=== PATIENT | male | born 1980 | race Caucasian/White ===

== ENCOUNTER 2020-06-14 14:24 | Outpatient (CLI) | payer BC, SELFPAY ==
--- NOTE | 2020-06-14 14:00 | DI.RAD_ITS ---
EXAM: XR KNEE RT 3V AP,LAT,LEONID CLINICAL HISTORY: right knee pain. TECHNIQUE: 2D digital imaging was performed. COMPARISON: No exams were available for comparison FINDINGS: BONES: No acute fracture is present. No bony destructive lesion is seen. There is a small well cortic ated osseous fragment at the inferior aspect of the patella which appears old. JOINTS: The knee is normally aligned. Very small suprapatellar joint effusion. The articular surface s are well maintained. SOFT TISSUE: Normal. IMPRESSION: Very small joint effusion. DATA REPOSITORY: RADIATION DOSE DELIVERED:
== END 2020-06-14 14:44 ==
PROVIDERS: PCP Naturopath; Referring Provider Naturopath; Visit Provider Student in an Organized Health Care Education/Training Program
DX: M25.561 Pain in right knee (principal); M25.461 Effusion, right knee
CPT/HCPCS: 73562

== ENCOUNTER 2020-08-16 14:17 | Outpatient (CLI) | payer BC, SELFPAY ==
--- NOTE | 2020-08-16 13:45 | DI.RAD_ITS ---
EXAM: XR ANKLE LT COMPLETE CLINICAL HISTORY: ANKLE PAIN TECHNIQUE: 2D digital imaging was performed. COMPARISON: No exams were available for comparison FINDINGS: BONES: No acute fracture is present. No bony destructive lesion is seen. JOINTS:The ankle mortise is normally aligned. SOFT TISSUE: Normal. IMPRESSION: Unremarkable radiographs of the left ankle. DATA REPOSITORY: RADIATION DOSE DELIVERED:
== END 2020-08-16 14:37 ==
PROVIDERS: PCP Naturopath; Referring Provider Naturopath; Visit Provider Student in an Organized Health Care Education/Training Program
DX: M25.572 Pain in left ankle and joints of left foot (principal)
CPT/HCPCS: 73610

== ENCOUNTER 2021-11-28 09:46 | Emergency (ER) | payer BC, SELFPAY ==
[2021-11-28] VITALS (43 sets, daily range): BP systolic 109–153; BP diastolic 66–93; PULSE 31–46; RESP 8–21; TEMP 36.4; O2SAT 97–100
--- NOTE | 2021-11-28 09:45 | RT.EKG_ITS ---
APPROVED REPORT Exam: Resting ECG Reason for Exam: chest pain Patient Location: E HR:33 bpm ECG Measurements Heart Rate 33 AXIS NM 219 P 35 QRSd 118 QRS -46 QT 498 T -15 QTc 371 Conclusion Sinus bradycardia...rate< 60 Borderline prolonged NM interval...NM >212, V-rate 30- 49 Incomplete RBBB and LAFB...axis(240,-40), S>R II III aVF Anterior infarct, possibly acute...ST >0.15mV, upright T, V2-V5 Physician: Rate 33, sinus bradycardia, less than 1 mm of elevation in V2, 1 mm of elevation in V3, 1 mm of elevation in V4. Inverted T waves in leads II, III, and aVF. No Q waves. Questionable incomp lete right bundle branch block and LAFB
[2021-11-28] MEDS: Normal Saline Flush 10 ML SYR IVP (09:48)
--- NOTE | 2021-11-28 10:00 | RT.EKG_ITS ---
APPROVED REPORT Exam: Resting ECG Reason for Exam: chest pain Patient Location: E HR:42 bpm ECG Measurements Heart Rate 42 AXIS AL 225 P 29 QRSd 111 QRS -55 QT 481 T -3 QTc 401 Conclusion Sinus bradycardia...rate< 60 Prolonged AL interval...AL >220, V-rate 30- 49 Incomplete RBBB and LAFB...axis(240,-40), S>R II III aVF Probable right ventricular hypertrophy...prominent R or R' w/ RAD or RICKY ST elevation suggests acute pericarditis...ST >0.10mV, ant/lat/inf Physician: elevation in V2-V5, t wave inversions in 2,3,AVF. unchanged from earlier ekg
[2021-11-28 10:01] LABS: Abs Immature Grans 0.02 10^3/uL (0.0-0.06); Absolute Basophil Count 0.02 10^3/uL (0.0-0.2); Absolute Eosinophil Count 0.05 10^3/uL (0.0-0.7); Absolute Lymphocyte Count 1.55 10^3/uL (1.2-3.4); Absolute Monocyte Count 0.34 10^3/uL (0.1-0.8); Absolute Neutrophil Count 4.52 10^3/uL (1.2-6.7); Basophils % 0.3; Eosinophils % 0.8; HCT 43.9 % (40.0-50.0); HGB 14.7 g/dL (13.5-17.5); Immature Grans % 0.3; Lymphocytes % 23.8; MCH 29.6 pg (27.0-33.0); MCHC 33.5 % (32.0-36.0); MCV 88.3 fL (80-95); MPV 9.2 fL (8.0-11.0); Monocytes % 5.2; Neutrophils % 69.6; Nucleated RBC 0 %; Platelet Count 198 10^3/uL (130-400); RBC 4.97 10^6/uL (4.36-5.78); RDW 12.3 % (11.8-14.1); RDW-SD 39.8 fL
--- NOTE | 2021-11-28 10:02 | W.ED.GENAD ---
Discharge Plan Disposition Patient Disposition: HOME Condition: Good Discharge Details Clinical Impression: Chest pain Primary Care Provider: Ce Henry ED Provider: Marivel Tran Home Meds and New Rx's Prescriptions: No Action No Known Home Meds RF: 0 Discharge Instructions Instructions: Chest Pain (ED) Additional Instructions: At this time your initial and repeat troponin are normal. Both myself and the food order delivery runner suspect that your abnormal EKG findings are secondary to an incomplete right bundle branch block and mild left ventricular hypertrophy. While these are not necessarily life-threatening they do need further evaluation. Additionally because of the chest pain that you did have will also require further cardiac evaluation. Because of your notable exercise capabilities you will have to do a special test called a nuclear stress test to adequately evaluate your heart's capability. This is been scheduled for . Please contact the scheduling office at [phone] to confirm your appointment. Your current appointment date is 11/30/2021 at 9:15 AM. If you notice any worsening of your symptoms, or any new symptoms such as vomiting, diarrhea, fever, chills, shortness of breath, chest pain, numbness, weakness, or fainting , please return immediately to the emergency department for reevaluation. Please follow up with your primary care provider as soon as possible for reassessment and reevaluation. As always, it was a pleasure participating in your medical care today. Referrals: Ce Henry [Primary Care Provider] - Medical Decision Making <Marivel Tran - Last Filed: 11/28/21 14:35> 41-year-old male presents to the ER with chief complaint of chest pressure, shortness of breath and lightheadedness which began this morning. Patient states that he is an avid runner and was on the treadmill this morning when he began with some shortness of breath and dizziness. He went to the school nurse and had a high blood pressure reading. He reports that he just does not feel right. He reports that the sensation in his chest has pretty much resolved upon arrival. He denies any nausea vomiting diarrhea no fever. No significant past medical history no meds no allergies. On initial examination he is bradycardic rate falls down to the low 30s which he reports is normal for him. He does have slight high blood pressure at 146/93. 10:00: EKG was reviewed by Dr. Archie Luque, DO ER attending, please see his official report. No old EKG available for review. Questionable STEMI 1004: Dr. Luque at bedside for patient evaluation. Patient reports mild chest pressure. 324 mg ASA and 0.4mg SL NTG ordered. EXAM: XR PORTABLE CHEST AP CLINICAL HISTORY: CP TECHNIQUE: 2D digital imaging was performed of the chest. Two images were obtained. AP views were obtained. COMPARISON: No exams were available for comparison FINDINGS: MEDIASTINUM: Normal. HEART: Normal. PULMONARY VASCULATURE: Normal. LUNGS: Clear. PLEURAL SPACE: No pleural effusion or pneumothorax. BONE:Within normal limits for the patient's age. OTHER FINDINGS:Normal. IMPRESSION: No acute pulmonary findings. 1056: Patient reevaluation he reports that his chest pressure is gone, blood pressure is better at 135/75, Dr. Luque is consulting with [facility] [place] cardiology this time. 1327: Serial troponin within normal limits. Plan is to have patient return on for a nuclear stress test. Dr. Garcias did speak with the department to assist in scheduling him for the appointment. He also did discuss case with hospitalist who reports that we are unable to get the stress test within the next 24 hours. Plan is to discharge with strict return instructions. Lab Data Lab results reviewed: Yes I reviewed the patient's lab results. Lab results narrative: Laboratory Tests Range/Units 11/28/21 11/28/21 11/28/21 09:54 09:54 09:54 WBC (4.4-10.8) 10^3/uL 6.50 RBC (4.36-5.78) 10^6/uL 4.97 Hgb (13.5-17.5) g/dL 14.7 Hct (40.0-50.0) % 43.9 MCV (80-95) fL 88.3 MCH (27.0-33.0) pg 29.6 MCHC (32.0-36.0) % 33.5 RDW (11.8-14.1) % 12.3 Plt Count (130-400) 10^3/uL 198 MPV (8.0-11.0) fL 9.2 Immature Gran % 0.3 Neutrophils % 69.6 Lymphocytes % 23.8 Monocytes % 5.2 Eosinophils % 0.8 Basophils % 0.3 Nucleated RBC % % 0 Absolute Neutrophils (1.2-6.7) 10^3/uL 4.52 Absolute Lymphocytes (1.2-3.4) 10^3/uL 1.55 Absolute Monocytes (0.1-0.8) 10^3/uL 0.34 Absolute Eosinophils (0.0-0.7) 10^3/uL 0.05 Absolute Basophils (0.0-0.2) 10^3/uL 0.02 PT (9.3-11.0) sec 11.0 INR (0.9-1.1) 1.1 APTT (21.0-27.5) sec 23.8 Sodium (136-145) mmol/L 140 Potassium (3.5-5.1) mmol/L 4.4 Chloride (98-107) mmol/L 103 Carbon Dioxide (21.0-32.0) mmol/L 30.5 Anion Gap (3-11) mmol/L 6.5 BUN (7-18) mg/dL 17 Creatinine (0.70-1.30) mg/dL 0.8 Estimated GFR/1.73 m2 (mL/min/1.73m2) >= 60.00 Glucose (74-106) mg/dL 91 Calcium (8.5-10.1) mg/dL 9.0 Magnesium (1.8-2.4) mg/dL 2.0 Total Bilirubin (0.2-1.0) mg/dL 0.5 AST (15-37) U/L 21 ALT (16-63) U/L 24 Alkaline Phosphatase (46-116) U/L 43 L Troponin I (<or=60) ng/L < 50 Total Protein (6.4-8.2) g/dL 7.3 Albumin (3.4-5.0) g/dL 4.1 COVID-19 Source Range/Units 11/28/21 11/28/21 11:30 12:53 WBC (4.4-10.8) 10^3/uL RBC (4.36-5.78) 10^6/uL Hgb (13.5-17.5) g/dL Hct (40.0-50.0) % MCV (80-95) fL MCH (27.0-33.0) pg MCHC (32.0-36.0) % RDW (11.8-14.1) % Plt Count (130-400) 10^3/uL MPV (8.0-11.0) fL Immature Gran % Neutrophils % Lymphocytes % Monocytes % Eosinophils % Basophils % Nucleated RBC % % Absolute Neutrophils (1.2-6.7) 10^3/uL Absolute Lymphocytes (1.2-3.4) 10^3/uL Absolute Monocytes (0.1-0.8) 10^3/uL Absolute Eosinophils (0.0-0.7) 10^3/uL Absolute Basophils (0.0-0.2) 10^3/uL PT (9.3-11.0) sec INR (0.9-1.1) APTT (21.0-27.5) sec Sodium (136-145) mmol/L Potassium (3.5-5.1) mmol/L Chloride (98-107) mmol/L Carbon Dioxide (21.0-32.0) mmol/L Anion Gap (3-11) mmol/L BUN (7-18) mg/dL Creatinine (0.70-1.30) mg/dL Estimated GFR/1.73 m2 (mL/min/1.73m2) Glucose (74-106) mg/dL Calcium (8.5-10.1) mg/dL Magnesium (1.8-2.4) mg/dL Total Bilirubin (0.2-1.0) mg/dL AST (15-37) U/L ALT (16-63) U/L Alkaline Phosphatase (46-116) U/L Troponin I (<or=60) ng/L < 50 Total Protein (6.4-8.2) g/dL Albumin (3.4-5.0) g/dL COVID-19 Source Nasal/Nares <Edenilson Luque DO - Last Filed: 11/28/21 13:43> I was requested to come to bedside and participate in direct care of the patient by Melinda Rivero. 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 Patient states he was on his treadmill, running at about a 6-minute mile, in mild 2 of his run at 5 AM when he developed a sudden onset chest pressure heaviness and tightness. He stopped the treadmill, sat down and rested the pain went away immediately, then a few minutes later started and completed his run without any issue. 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 He went to school nurse noted he had an elevated blood pressure, and came to the ER for further assessment. He does admit to mild chest pressure while he was at school although it is almost imperceptible. Most of that pain resolved when he was in the car driving to the ER, but has again minimally returned when she arrived at the ER. He denies any arm neck or shoulder pain. He denies any tearing or ripping sensation. He denies any pleuritic chest pain. He denies any history of PEs. He denies any recent cocaine use. No family history of cardiac disease whatsoever. He does not smoke. He has no other complaints at this time. He states that his baseline heart rate is around 30-35 at home. Physical exam demonstrates a well-appearing male, exam is notably unremarkable. Bedside ultrasound demonstrates good cardiac contractility on limited bedside echo. No signs of significant deficit or abnormality. No evidence of effusion or tamponade clinically. Pulses are equal bilaterally. EKG shows less than a millimeter of elevation in V2, and 1 mm of elevation in V3 and V4, and then in the inferior leads there is evidence of inverted T waves in 2, 3, and aVF. No Q waves. No broad terminal S waves. EKG is certainly concerning for cardiac abnormality including potential STEMI. Aspirin will be given, nitro will be given and repeat EKG will be ordered after nitro administration. We will contact [facility] for ACS, monitor closely and reassess. 12:13 PM Laboratory work-up is returned unremarkable, troponin normal no electrolyte all normal. EKG was reviewed both with Radha of [facility] cardiology as well as Dr. Luis Quispe of [facility] cardiology, and both feel that this is not consistent with STEMI, and more consistent with partial block and LVH. I do recommend repeat troponin, as well as nuclear stress testing. Did contact the hospitalist Dr. Lyn, and the case was discussed between myself, him and our in-house food order delivery runner Dr. Milagro Tavares, and at this time Dr. Tavares feels that if the repeat troponin is normal, with the patient nearly otherwise absent risk factors he would be safe for discharge for outpatient nuclear stress testing on . We will continue to monitor and reassess after repeat troponin 1:37 PM Laboratory work-up including initial and repeat troponin have both returned normal. Chest x-ray negative for acute process. Repeat EKG unchanged. With the patient continued absence of chest pain, his low risk heart score, and cardiology is suspicion the patient's EKG changes are secondary to an incomplete right bundle and now potential mild left ventricular hypertrophy and not secondary to ischemic issues, I do feel at this time it is reasonable for the patient to go home as long as he has extremely close follow-up and the nuclear stress test. Cardiology/Dr. Tavares does agree with this plan. We have scheduled the outpatient nuclear stress test for the patient this . We do not have availability for nuclear stress testing until then. I did offer the patient continued observation and admission here versus discharge of the patient has notably referred and chosen discharge with close follow-up. With a long and thorough discussion about concerning red flags which he would need to immediately return. His is at bedside and we also discussed this with her. I have extensively reviewed the treatment plan and discharge instructions with the patient and their family. I have addressed all patient concerns at this time. The patient and family was made aware of what symptoms to monitor for that would warrant a return to the emergency department. Discussed the plan with the patient and family, they demonstrate verbal understanding and agreement with our assessment and plan at this time. The documentation in this chart was dictated using [employer] dictation software. Please excuse any dictation errors. EKG 9: 55 Rate 33, sinus bradycardia, less than 1 mm of elevation in V2, 1 mm of elevation in V3, 1 mm of elevation in V4. Inverted T waves in leads II, III, and aVF. No Q waves. Questionable incomplete right bundle branch block and LAFB FINDINGS: MEDIASTINUM: Normal. HEART: Normal. PULMONARY VASCULATURE: Normal. LUNGS: Clear. PLEURAL SPACE: No pleural effusion or pneumothorax. BONE:Within normal limits for the patient's age. OTHER FINDINGS:Normal. IMPRESSION: No acute pulmonary findings. HPI <Marivel Tran - Last Filed: 11/28/21 14:35> General Mode of arrival: ambulatory. Date/Time Provider Initiated Documentation: 11/28/21 09:47. Limitations to Documentation: no limitations. Information obtained by: patient, RN notes reviewed and old records reviewed. HPI Narrative: 41-year-old male presents to the ER with chief complaint of chest pressure, shortness of breath and lightheadedness which began this morning. Patient states that he is an avid runner and was on the treadmill this morning when he began with some shortness of breath, chest pressure, and dizziness. He went to the school nurse and had a high blood pressure reading. He reports that he just does not feel right. He reports that the sensation in his chest has pretty much resolved upon arrival. He denies any nausea vomiting diarrhea no fever. No significant past medical history no meds no allergies. On initial examination he is bradycardic rate falls down to the low 30s which he reports is normal for him. He does have slight high blood pressure at 146/93. Related Data Home Medications Medication Instructions Recorded Confirmed Unknown [No Known Home Meds] 11/28/21 11/28/21 Allergies Allergy/AdvReac Type Severity Reaction Status Date / Time No Known Allergies Allergy Verified 11/28/21 10:00 General Stated Complaint: Chest Pain SIMONA: 2 Review of Systems <Marivel Tran - Last Filed: 11/28/21 14:35> All systems reviewed & are unremarkable except as noted in HPI and below Constitutional Constitutional: Reports as per HPI ENT Ears, Nose, Mouth, and Throat: Reports dizziness Cardiovascular Cardiovascular: Reports chest pain with activity and Reports dyspnea on exertion Respiratory Respiratory: Denies cough, Denies hemoptysis and Reports dyspnea on exertion Gastrointestinal Gastrointestinal: Denies diarrhea, Denies nausea and Denies vomiting Neurologic Neurologic: Reports dizziness and Denies localized weakness PFSH <Marivel Tran - Last Filed: 11/28/21 14:35> All Active Problems (Updated 11/28/21 @ 13:34 by Edenilson Luque DO) Chest pain (Acute) 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 Appears stated age. Normal body habitus. Head: Normocephalic, no trauma. Eyes: Pupils PERRL, Red reflex noted, EOM's intact. Eyelids symmetrical without lesions, discharge, or swelling. ENT: Bilateral TM's WNL, External ear normal to inspection, no mastoid TTP, swelling, or erythema, Nasal turbinates WNL, no nasal discharge. Normal dentition, Posterior pharynx WNL, no exudate. Chest: Bradycardia at a rate of 31-40, normal S1, S2, distal pulses intact. Resp: Lungs clear to auscultation bilaterally, no wheezes, rales, or rhonchi. Abdomen: Soft, non-distended, Normoactive bowel sounds all 4 quads. Musculoskeletal: Normal gait, 5/5 strength to all four extremities. Skin: No suspicious rashes or lesions. Capillary refill less than 2 sec. Neurologic: Cranial nerves II-XII intact. Alert and oriented x 3. Motor: No deficits noted. Sensory: Intact bilaterally all 4 extremities. Reflexes: DTR's intact bilaterally.. Hematologic/Lymphatic: No ecchymosis, no lymphadenopathy. Course <Marivel Roman Filed: 11/28/21 14:35> Vital Signs Vital signs: Vital Signs Temperature 36.4 C L 11/28/21 09:50 Pulse 33 L 11/28/21 09:50 Respiratory Rate 12 11/28/21 09:50 Blood Pressure 146/93 H 11/28/21 09:50 Pulse Oximetry 100 11/28/21 09:50 Temperature 36.4 C L 11/28/21 09:50 Temperature Source Skin 11/28/21 09:50 Pulse 33 L 11/28/21 09:50 Respiratory Rate 12 11/28/21 09:50 Respiratory Effort 11/28/21 09:50 Blood Pressure 146/93 H 11/28/21 09:50 Blood Pressure Position Supine 11/28/21 09:50 Pulse Oximetry 100 11/28/21 09:50 Oxygen Delivery Method Room Air 11/28/21 09:50 Oxygen Flow Rate 0 11/28/21 09:50
[2021-11-28] MEDS: Aspirin 81 MG CHEW 324 MG CH (10:05)
[2021-11-28] MEDS: nitroGLYcerin 0.4 MG TAB SL (10:11)
[2021-11-28 10:18] LABS: ALT 24 U/L (16-63); AST 21 U/L (15-37); Albumin 4.1 g/dL (3.4-5.0); Alkaline Phosphatase 43 U/L (46-116); Anion Gap 6.5 mmol/L (3-11); BUN 17 mg/dL (7-18); Bilirubin, Total 0.5 mg/dL (0.2-1.0); CO2 30.5 mmol/L (21.0-32.0); CREATININE 0.8 mg/dL (0.70-1.30); Chloride 103 mmol/L (98-107); Glucose 91 mg/dL (74-106); Potassium 4.4 mmol/L (3.5-5.1); Sodium 140 mmol/L (136-145); Total Protein 7.3 g/dL (6.4-8.2); Troponin I < 50 ng/L (<or=60)
--- NOTE | 2021-11-28 10:30 | DI.RAD_ITS ---
Exam(s) XR PORTABLE CHEST AP EXAM: XR PORTABLE CHEST AP CLINICAL HISTORY: CP TECHNIQUE: 2D digital imaging was performed of the chest. Two images were obtained. AP views were o btained. COMPARISON: No exams were available for comparison FINDINGS: MEDIASTINUM: Normal. HEART: Normal. PULMONARY VASCULATURE: Normal. LUNGS: Clear. PLEURAL SPACE: No pleural effusion or pneumothorax. BONE:Within normal limits for the patient's age. OTHER FINDINGS:Normal. IMPRESSION: No acute pulmonary findings. DATA REPOSITORY: RADIATION DOSE DELIVERED:
[2021-11-28 10:34] LABS: INR 1.1 (0.9-1.1); PTT Activated 23.8 sec (21.0-27.5)
[2021-11-28] MEDS: Normal Saline 1,000 ML 125 ML IV (10:54)
[2021-11-28 11:49] LABS: Source Nasal/Nares
--- NOTE | 2021-11-28 12:45 | RT.EKG_ITS ---
APPROVED REPORT Exam: Resting ECG Reason for Exam: chest pain Patient Location: E HR:32 bpm ECG Measurements Heart Rate 32 AXIS OK [id number] P [id number] QRSd 110 QRS -42 QT 500 T -25 QTc 367 Conclusion Junctional rhythm...absent P waves, slow V-rate Incomplete RBBB and LAFB...axis(240,-40), S>R II III aVF Anterior infarct, possibly acute...ST >0.15mV, upright T, V2-V5 Abnormal T, consider ischemia, inferior leads...T <-0.20mV, II III aVF Physician: unchanged from prior 2 ekg's today
[2021-11-28 13:15] LABS: Troponin I < 50 ng/L (<or=60)
--- NOTE | 2021-11-28 13:35 | NUR.NOTE ---
Nursing Note: STRESS TEST FORM FAXED TO [facility] FOR APPOINTMENT ON SATURDAY. ROBERTO, DEANNA
--- NOTE | 2021-11-28 13:43 | NUR.NOTE ---
Nursing Note: PT INFO FAXED TO C[facility]OLOG[facility] FOR FOLLOW UP TALISHA FOR CHEST PAIN. ROBERTO, ED
--- NOTE | 2021-11-28 14:42 | NUR.NOTE ---
Nursing Note: Cecilia Price, Access checked into the need of prior authorization for the NM stress test with procedure code 44004 given to me by [facility]. She said that no prior authorization is needed and that she is putting the reference number in the account. DI has been notified of this. Lizzy Napier
[2021-11-28 15:38] LABS: COVID-19 PCR Negative (Negative)
== END 2021-11-28 13:47 | disposition home or self-care (01) ==
PROVIDERS: Emergency Provider Registered Nurse Emergency; PCP Naturopath
DX: R07.9 Chest pain, unspecified (principal)
CPT/HCPCS: 36415; 80053; 87635; 93005; 99284; 71045; 83735; 84484; 85025; 85610; 85730; 93010

== ENCOUNTER 2021-11-30 01:55 | Outpatient (CLI) | payer BC, SELFPAY ==
--- NOTE | 2021-11-30 | DI.NM_ITS ---
APPROVED REPORT Exam: Exercise Treadmill Patient Location: Out-Patient Room/Bed: Stress Nurse: Juliana Echevarria RN Ordering Provider:MANAV QUINTANILLA, Contact Number: [phone] BMI: 21.69 Baseline Rhythm: Sinus Bradycardia Comment: 1DHB, incomplete RBBB, diffuse ST elevations Indications: Chest pain Medical History Medical History: Chest pain, Vhaawxi-Vbjmja-Kbplfbqqu syndrome Cardiac Medications: None Allergies: NKA Cardiac Risk Factors: None Previous Cardiac Procedures: None Pretest Chest Pain Characteristics: None Exercise History: Physically active Physical Disabilities: None Lung Sounds: Clear to auscultation Heart Sounds: Regular Stress Test Details Test: Exercise stress testing was performed using a Yehuda protocol. Nuclear Acquisition: Rest Tc-99m/Stress Tc-99m 1 day Rest Isotope: Tc-99m Sestamibi. Dose: 10.7 Date: 11/30/2021 Injection Time: 0925 Stress Isotope: Tc-99m Sestamibi. Dose: 32.9 Date: 11/30/2021 Injection Time: 1110 HR Resting HR Supine: 39 bpm Max Heart Rate (APMHR): 180.395302 bpm Resting HR Standin bpm Target HR (85% APMHR): 153.391724 bpm Max HR Achieved: 167 bpm % of APMHR: 92.78 Recovery HR: 82 bpm HR response to stress: Normal HR response to stress BP Resting BP Supine: 126/78 mmHg Resting BP Standin/78 mmHg Max BP: 190/56 mmHg Recovery BP: 148/58 mmHg BP response to stress: Normal blood pressure response to stress. ECG Resting ECG: Sinus Bradycardia, 1DHB, incomplete RBBB, diffuse ST elevations Ectopy: None Stress ECG: Sinus Tachycardia ST Change: No significant ST segment changes noted Arrhythmia: None Recovery ECG: Sinus Rhythm, 1DHB, incomplete RBBB Recovery ST Change: No significant ST segment changes noted Recovery Arrhythmia: None Clinical Reason for Termination: Test completed, no further stages Stress Symptoms: None Exercise duration: 21 min00 sec Highest Stage Reached: Stage 7: 6.0 mph at 22% grade. Exercise capacity: 19.29 METs Barbour Treadmill Score: 18.3 Rate Pressure Product: 81201 Stress ECG Conclusion 1. Resting electrocardiogram showed sinus bradycardia, incomplete right bundle branch block, left justa tricular hypertrophy with repolarization abnormalities 2. Patient exercised on the Yehuda protocol and completed a workload of 19.29 METS 3. Normal heart rate and blood pressure response to exercise. Patient achieved 92% of predicted hear t rate for age 4. Electrocardiographically the test was negative for myocardial ischemia 5. There were no significant dysrhythmias Barbour Treadmill Score is 18.3 which is Low risk. Stress Test Summary STAGE Time (mins) Speed (mph) Grade (%) HR BP SYMPTOMS METS Supine 39 126/78 Standing 36 120/78 SpO2 99% 1 3 1.7 10 60 120/70 SpO2 97% 4.6 2 6 2.5 12 76 120/72 SpO2 96% 7 3 9 3.4 14 94 146/62 SpO2 94% 10.2 4 12 4.2 16 133 SpO2 95% 12.9 5 15 5.0 18 150 SpO2 95% 17.2 1 min recovery 67 178/48 SpO2 94% 3 min recovery 81 190/56 SpO2 96% 6 min recovery 82 148/58 SpO2 98% Stage 6 164 SpO2 94% Stage 7 167 SpO2 94% Pt exercised through final stage of test and did not endorse any symptoms during exercise or recovery . MPI Conclusion Normal myocardial perfusion without evidence of ischemia or prior infarction EF 55%, normal wall motion Radiologist Interpretation Radiologist Interpretation by: Britton Cardozo MD Interpretation Date/Time: 11/30/2021 16:59:55
== END 2021-11-30 02:15 ==
PROVIDERS: PCP Naturopath; Visit Provider Student in an Organized Health Care Education/Training Program
DX: R07.9 Chest pain, unspecified (principal); R00.1 Bradycardia, unspecified; I45.19 Other right bundle-branch block
CPT/HCPCS: 78452; 93017

== ENCOUNTER 2021-12-05 08:40 | Outpatient (CLI) | payer BC, SELFPAY | END 2021-12-05 08:41 | disposition home or self-care (01) | LOC: DI.CARD 08:41 | PROVIDERS: PCP Naturopath; Visit Provider Internal Medicine Cardiovascular Disease | DX: R69 Illness, unspecified (principal) ==

== ENCOUNTER 2021-12-07 09:30 | Outpatient (CLI) | payer BC, SELFPAY | END 2021-12-07 09:31 | disposition home or self-care (01) | LOC: DI.CARD 09:31 | PROVIDERS: PCP Naturopath; Visit Provider Internal Medicine Cardiovascular Disease | DX: Z53.8 Procedure and treatment not carried out for other reasons (principal) | CPT/HCPCS: 93010 ==

== ENCOUNTER 2022-01-04 02:12 | Outpatient (CLI) | payer BC, SELFPAY ==
--- NOTE | 2022-01-04 12:43 | DI.US_ITS ---
APPROVED REPORT EXAM: Comprehensive 2D, Doppler, and color-flow Echocardiogram Patient Location: Out-Patient Dental Officer: Shaista Watts RDCS (AE) Indications: Chest pain Conclusion Normal left ventricular wall thickness and chamber size. Estimated ejection fraction is 60%. Wall m otion is normal Normal right ventricular size and systolic function Both atria are normal in size There is no structural or hemodynamically significant valvular disease Wall motion Left Ventricle The left ventricle is normal size. The left ventricular systolic function is normal. The left ventric ular ejection fraction is within the normal range. There is normal left ventricular wall thickness. T here is normal LV segmental wall motion. There is no ventricular septal defect visualized. LVEF is 60 %. Right Ventricle The right ventricle is normal size. The right ventricular systolic function is normal. Atria The left atrium size is normal. The right atrium size is normal. Aortic Valve The aortic valve is normal in structure. Aortic valve is trileaflet. There is no aortic valvular sten osis. No aortic regurgitation is present. Mitral Valve The mitral valve is normal in structure. No evidence of mitral valve stenosis. Trace to mild mitral r egurgitation. Tricuspid Valve The tricuspid valve is normal in structure. There is no tricuspid valve stenosis. Trace tricuspid reg urgitation. Unable to assess PA pressure. Pulmonic Valve The pulmonary valve is normal in structure. There is no pulmonic valvular stenosis. There is no pulmo ginger valvular regurgitation. Great Vessels The aortic root is normal in size. The ascending aorta is normal in size. Aortic arch is normal in ca liber. IVC is normal in size and collapses >50% with inspiration. Pericardium There is no pericardial effusion. 2D Dimensions IVSD d PLAX 1.02 cm M: 0.6-1.2 LV Vol A2C d MOD 170.6 mL LVPW d PLAX 1.04 cm M: 0.6 - 1.2 LV Vol A4C d MOD 143.1 mL LVID d PLAX 4.59 cm M: 4.2 - 5.8 LA vol/ BSA A2C s A-L 55.6 mL/m2 LVDs 3.10 cm M: 2.5 - 4.0 LA vol/ BSA A4C s A-L 38.5 mL/m2 Ao Root d 3.16 cm M: 3.1 - 3.7 LA Vol/ BSA Biplane s A-L 47.8 mL/m2 RA Area A4C 20.68 cm2 LA Area A4C s MOD 23.70 cm2 RA Vol/ BSA A4C s A-L 34.6 mL/m2 LA Area A2C s MOD 27.57 cm2 Ao Asc Diam d 2.98 cm M: 2.6 - 3.4 LV EF A4C MOD 60.6 % LV EF Teichholz 59.9 % LV EF A2C MOD 60.0 % LVEF ([facility]) 59.45 % M: 52 - 72 LV EF Biplane MOD 59.5 % LV Volume 116.68 mL M: 62 - 150 SV 92.69 mL LV Volume Index 58.04 mL/m2 M: 34 - 74 SV Index 46.05 mL/m2 LV Vol Biplane MOD 155.9 mL FS 31.75 % M-Mode TAPSE 2.91 cm (M/F) >1.7 LV Diastology MV E' medial 0.104 (>0.07 m/s) E/A Ratio 2.0 LV E/e MED 7.60 (<14) MV E Vmax 0.80 (0.4-1.3 m/s) MV E' lateral 0.158 (>0.1 m/s) MV A Vmax 0.40 (0.4-1.3 m/s) LV E/e LAT 5.00 (<14) MV E/A Ratio 1.94 MV E/E' medial 7.63 MV E/E' lateral 5.02 Aortic Valve LVOT Area 3.71 cm2 AoV Area Vmax 3.65 cm2 LVOT Vmax 1.38 m/s AoV Area/ BSA (Vmax) 1.81 cm2/m2 LVOT Mean Guilherme. 0.86 m/s ELIEZER Mean Guilherme. 3.47 cm2 LVOT Peak Grad 7.7 mmHg ELIEZER Mean Guilherme. Index 1.72 cm2/m2 LVOT Mean Grad 3.5 mmHg LVOT VTI 0.295 m LVOT Diam s 2.15 cm AoV Vmax 1.41 m/s Velocity Ratio 0.97 AoV Mean Guilherme. 0.92 m/s AoV Peak Grad 7.9 mmHg LVOT SV 109.43 mL AoV Mean Grad 3.8 mmHg AoV VTI 0.295 m AoV Area VTI 3.71 cm2 AoV Area/ BSA (VTI) 1.84 cm/m2 Mitral Valve MV DT 177 (160-240 msec) MV PHT 51 msec MV Area PHT 4.29 cm2 MV VTI 0.329 m MV Area VTI 3.33 (4.0-6.0 cm2) Pulmonary Valve PV Vmax 0.83 (0.5-1.5 m/s) RVOT Peak Gr. 2.67 mmHg PV Peak Grad 2.8 mmHg RVOT Mean Gr. 1.35 mmHg PV Mean Grad 1.7 mmHg RVOT VTI 0.216 m PV VTI 0.243 m RVOT Vmax 0.82 m/s
== END 2022-01-04 02:32 ==
PROVIDERS: PCP Naturopath; Visit Provider Internal Medicine Cardiovascular Disease
DX: R07.9 Chest pain, unspecified (principal)
CPT/HCPCS: 93306

== ENCOUNTER 2024-03-16 14:56 | Outpatient (REF) | payer BC, SELFPAY ==
[2024-03-16 15:51] LABS: TSH (W/Ref FT4) 1.57 uIU/mL (0.36-3.74)
== END 2024-03-16 14:57 | disposition home or self-care (01) ==
LOC: NCHCN 14:56
PROVIDERS: PCP Naturopath; Visit Provider Student in an Organized Health Care Education/Training Program
DX: E55.9 Vitamin D deficiency, unspecified (principal); R68.89 Other general symptoms and signs
CPT/HCPCS: 82306; 84443

== ENCOUNTER 2024-10-28 16:17 | Outpatient (REF) | payer BC, SELFPAY ==
[2024-10-28 20:21] LABS: Calculated LDL 144 mg/dL (<100); Cholesterol 248 mg/dL (<200); HDL Cholesterol 94 mg/dL (40-60); Triglyceride 53 mg/dL (<150)
== END 2024-10-28 16:18 | disposition home or self-care (01) ==
LOC: NCHCN 16:17
PROVIDERS: PCP Naturopath; Visit Provider Student in an Organized Health Care Education/Training Program
DX: Z13.220 Encounter for screening for lipoid disorders (principal)
CPT/HCPCS: 80061